=== PATIENT | female | born 1975 | race Caucasian/White ===

== ENCOUNTER 2018-01-17 00:41 | Emergency (ER) | payer SELFPAY ==
[~2018-01-17] VITALS: Ht 167.6 cm; Wt 61.0 kg
[2018-01-17 00:59] VITALS: BP 115/70
[2018-01-17] MEDS ORDERED: TETANUS, DIPHTHERIA, PERTUSSIS VAC/PF 0.5ML (>7YR OLD) IM ONE (08:00)
[2018-01-17] MEDS ORDERED: ACETAMINOPHEN 500MG TABLET PO ONE (08:00)
== END 2018-01-17 08:49 | disposition home or self-care (01) ==
LOC: ER 00:50
DX: M21.612 Bunion of left foot (principal); M21.611 Bunion of right foot; Z23 Encounter for immunization
CPT/HCPCS: 90471; 90715; 99283